=== PATIENT | female | born 1970 | race Asian ===

== ENCOUNTER 2018-01-23 14:42 | Emergency (ER) | payer BC ==
[~2018-01-23] VITALS: Ht 160 cm; Wt 54.0 kg
[2018-01-23 14:52] VITALS: BP 133/100
--- NOTE | 2018-01-23 15:22 | NUR ---
PATIENT PRESENTS TO ED WITH COMPLAINTS OF BLOOD TINGED SPUTUM AND UPPER CHEST PAIN. PATIENT STATES COUGH STARTED 3 DAYS AGO AND WORSENING. SHE STATES HER BONES AND BACK IS STARTING TO HURT. LUNG SOUNDS CLEAR THROUGHOUT. PATIENT ALSO REPORTS LOSING 15LB IN LAST MONTH. PATIENT POSITIONED FOR COMFORT, BED IN LOWEST POSITION, HOB ELEVATED. ER MD MADE AWARE OF PATIENT STATUS.
[2018-01-23 16:34] VITALS: BP 129/72
--- NOTE | 2018-01-23 16:34 | NUR ---
Patient discharged with v/s stable. Written and verbal after care instructions given and explained. Patient alert, oriented and verbalized understanding of instructions. Ambulatory with steady gait. All questions addressed prior to discharge. ID band removed. Patient advised to follow up with PMD. Rx of CODEINE PHOSPHATE/PROMETHAZINE HYDROCHLORIDE AND AZITHROMYCIN given. Patient educated on indication of medication including possible reaction and side effects. Opportunity to ask questions provided and answered.
== END 2018-01-23 16:34 | disposition home or self-care (01) ==
LOC: MED 14:42
DX: J40 Bronchitis, not specified as acute or chronic (principal)
CPT/HCPCS: 71045; 99283